=== PATIENT | female | born 1995 | race African-American/Black ===

== ENCOUNTER 2017-01-24 03:01 | Emergency (ER) | payer SELFPAY ==
[~2017-01-24] VITALS: Ht 160 cm; Wt 60.3 kg
--- NOTE | 2017-01-24 03:46 | ED.ADGEN ---
Past Medical History Past Medical History: No Pertinent History Past Surgical History: No Surgical History Alcohol Use: Occasionally Drug Use: Marijuana Adult General Chief Complaint Chief Complaint: NAUSEA/VOMITING/DIARRHA HPI HPI Patient is a 21 year old -[place] female with history of daily nausea vomiting usually at night presents with fall while episodes of emesis today. Patient states she has vomited 4 times. She also reports lower abdominal painand cramping worse with vomiting. No diarrhea or constipation.. She was concerned that she may have been . Last menstrual period was 10 days ago reports a "borderline" positive test earlier today. Patient denies chest pain, shortness of breath, flank pain, urinary frequency urgency. No prior abdominal surgeries. No other symptoms or complaints. Review of Systems Review of Systems Review symptoms as per history of present illness. All other review symptoms are negative. Current Medications Current Medications Current Medications Medications (Trade) Dose Ordered Sig/Rafi Start Time Stop Time Status Last Admin Dose Admin Famotidine (Pepcid) 20 mg STK-MED ONCE 01/24/17 03:47 01/24/17 03:48 DC Ondansetron HCl (Zofran Odt) 8 mg 1X ONCE 01/24/17 04:00 01/24/17 04:01 DC 01/24/17 03:50 8 MG Allergies Allergies Allergies Coded Allergies Type Severity Reaction Last Updated Verified No Known Drug Allergies 06/06/15 No Physical Exam Physical Exam Constitutional: Well developed, well nourished, no acute distress, non-toxic appearance. [] HENT: Normocephalic, atraumatic, bilateral external ears normal, oropharynx moist, no oral exudates, nose normal. [] Eyes: PERRLA, EOMI, conjunctiva normal, no discharge. [] Neck: Normal range of motion, no tenderness, supple, no stridor. [] Cardiovascular:Heart rate regular rhythm, no murmur [] Lungs & Thorax: Bilateral breath sounds clear to auscultation [] Abdomen: Bowel sounds normal, soft, soft, nondistended, mild suprapubic pain, tenderness, negative McBurney's point, no rebound rigidity or guarding. Skin: Warm, dry, no erythema, no rash. [] Back: No tenderness, no CVA tenderness. [] Extremities: No tenderness, no cyanosis, no clubbing, ROM intact, no edema. [] Neurologic: Alert and oriented X 3, normal motor function, normal sensory function, no focal deficits noted. [] Psychologic: Affect normal, judgement normal, mood normal. [] Current Patient Data Vital Signs Vital Signs Date Time Temp Pulse Resp B/P (MAP) Pulse Ox O2 Delivery O2 Flow Rate FiO2 01/24/17 04:30 52 19 98/67 (77) 98 Room Air 01/24/17 03:11 98.3 98.3 Lab Values Laboratory Tests Test 01/24/17 02:25 POC Urine HCG, Qualitative Hcg negative (Negative) EKG EKG [] Radiology/Procedures Radiology/Procedures [] Course & Med Decision Making Course & Med Decision Making Pertinent Labs and Imaging studies reviewed. (See chart for details) [Patient with vomiting and concern of possible . Patient's abdomen soft , minimally tender and does not represent an acute surgical abdomen. Point-of- care test negative and the ED. Patient's nausea improved with treatment. Patient able to tolerate oral liquids prior to departure.] Dragon Disclaimer Dragon Disclaimer This electronic medical record was generated, in whole or in part, using a voice recognition dictation system. EDGAR MACHADO DO Jan 24, 2017 03:46
[2017-01-24] MEDS ORDERED: FAMOTIDINE 20 MG TABLET. ONE (03:47)
[2017-01-24] MEDS ORDERED: ONDANSETRON ODT 4 MG TAB.RAPDIS. PO ONE (04:00)
[2017-01-24] MEDS ORDERED: FAMOTIDINE 20 MG TABLET. PO ONE (04:00)
[2017-01-24 04:30] VITALS: BP 98/67
== END 2017-01-24 04:49 | disposition home or self-care (01) ==
LOC: ER 03:01
DX: R11.2 Nausea with vomiting, unspecified (principal); R10.30 Lower abdominal pain, unspecified
CPT/HCPCS: 81025; 99283; Q0162

== ENCOUNTER 2017-05-25 11:47 | Emergency (ER) | payer SELFPAY ==
[~2017-05-25] VITALS: Ht 160 cm; Wt 61.2 kg
[2017-05-25 12:00] VITALS: BP 122/76
[2017-05-25] MEDS ORDERED: HYDROcodone/APAP 5/325MG 1 TAB TABLET PO ONE (12:45)
[2017-05-25] MEDS ORDERED: DIPHTH,PERTUSS(ACELL),TET TOX 0.5 ML DISP.SYRIN. VAX IM ONE (12:45)
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
== END 2017-05-25 13:16 | disposition home or self-care (01) ==
LOC: ER 11:47
DX: S01.511A Laceration without foreign body of lip, initial encounter (principal); Y08.89XA Assault by other specified means, initial encounter; Y93.89 Activity, other specified; Y92.89 Other specified places as the place of occurrence of the external cause; Y99.8 Other external cause status
CPT/HCPCS: 90471; 90715; 99283-25

== ENCOUNTER 2018-04-15 20:08 | Emergency (ER) | payer SELFPAY ==
[~2018-04-15] VITALS: Ht 160 cm; Wt 64.9 kg
[2018-04-15 20:21] VITALS: BP 122/57
[2018-04-15] MEDS ORDERED: METH4TAB2 PO (20:41)
--- NOTE | 2018-04-15 20:42 | PHYS DOC ---
Past Medical History Past Medical History: No Pertinent History Past Surgical History: No Surgical History Additional Information: 0.5 ppd Alcohol Use: None Drug Use: None Adult General Chief Complaint Chief Complaint: SKIN RASH/ABSCESS [facility] HPI Patient is a 23 year old female who presents with a widespread very itchy rash. She states that she does not know what is causing the rash. It started fairly suddenly approximately one day ago. She has not tried [id number] medications for treatment. Review of Systems Review of Systems Constitutional: Denies fever or chills [] Respiratory: Denies cough or shortness of breath [] Cardiovascular: No additional information not addressed in HPI [] GI: Denies abdominal pain, nausea, vomiting, bloody stools or diarrhea [] : Denies dysuria or hematuria [] Musculoskeletal: Denies back pain or joint pain [] Integument: See history of present illness Neurologic: Denies headache, focal weakness or sensory changes [] Endocrine: Denies polyuria or polydipsia [] All other systems were reviewed and found to be within normal limits, except as documented in this note. Allergies Allergies Allergies Coded Allergies Type Severity Reaction Last Updated Verified No Known Drug Allergies 06/06/15 No Physical Exam Physical Exam Constitutional: Well developed, well nourished, no acute distress, non-toxic appearance. [] Cardiovascular:Heart rate regular rhythm, no murmur [] Lungs & Thorax: Bilateral breath sounds clear to auscultation [] Abdomen: Bowel sounds normal, soft, no tenderness, no masses, no pulsatile masses. [] Skin: The patient has numerous small papules scattered across her bilateral upper extremities just and torso with some evidence of excoriation but no signs of infection Neurologic: Alert and oriented X 3, normal motor function, normal sensory function, no focal deficits noted. [] Psychologic: Affect normal, judgement normal, mood normal. [] Current Patient Data Vital Signs Vital Signs Date Time Temp Pulse Resp B/P (MAP) Pulse Ox O2 Delivery O2 Flow Rate FiO2 04/15/18 20:21 98.3 83 16 122/57 (78) 98 Room Air 98.3 EKG EKG [] Radiology/Procedures Radiology/Procedures [] Course & Med Decision Making Course & Med Decision Making Pertinent Labs and Imaging studies reviewed. (See chart for details) [] Dragon Disclaimer Dragon Disclaimer This electronic medical record was generated, in whole or in part, using a voice recognition dictation system. Departure Departure Impression: Primary Impression: Rash and nonspecific skin eruption Disposition: HOME, SELF-CARE Condition: STABLE Referrals: NO PCP (PCP) Patient Instructions: Contact Dermatitis Additional Instructions: Take the medication with food. Take Benadryl along with this medication schedule to help control your itching. Follow-up with your primary care provider in 3 days for recheck if not improving or return to the emergency department if worsening. Scripts Methylprednisolone (MEDROL) 4 Mg Tab.ds.pk 1 PKG PO UD, #1 PKG Prov: EDIN DOZIER APRN 04/15/18 EDIN DOZIER APRN Apr 15, 2018 20:42
== END 2018-04-15 20:47 | disposition home or self-care (01) ==
LOC: ER 20:08
DX: R21 Rash and other nonspecific skin eruption (principal); F42.4 Excoriation (skin-picking) disorder
CPT/HCPCS: 99283

== ENCOUNTER 2018-04-28 12:41 | Emergency (ER) | payer SELFPAY ==
[~2018-04-28] VITALS: Ht 160 cm; Wt 63.5 kg
[~2018-04-28 12:41] MED LIST: METH4TAB2 PO
[2018-04-28 13:32] VITALS: BP 123/57
[2018-04-28] MEDS ORDERED: HYDR25TA PO (13:44)
[2018-04-28] MEDS ORDERED: PRED-220 PO (13:44)
[2018-04-28] MEDS ORDERED: FAMO20TA5 PO (13:44)
[2018-04-28] MEDS ORDERED: NYST15CR2 TP (13:44)
--- NOTE | 2018-04-28 13:44 | PHYS DOC ---
Past Medical History Past Medical History: No Pertinent History Past Surgical History: No Surgical History Alcohol Use: None Drug Use: None Adult General Chief Complaint Chief Complaint: ITCHING HPI HPI Patient is a 23 year old female with no significant medical history who presents today complaining of a pruritic rash that began a month ago. Patient states she has tried [id number] remedies with no relief. She states she was seen in the ED 17 days ago for the same rash, she states she was given Medrol Dosepak, she states there is no improvement. Patient denies any new contacts. She is very tearful wishing her skin would be back to normal. Review of Systems Review of Systems Constitutional: Denies fever or chills [] Musculoskeletal: Denies back pain or joint pain [] Integument: Reports rash. Neurologic: Denies headache, focal weakness or sensory changes [] All other systems were reviewed and found to be within normal limits, except as documented in this note. Allergies Allergies Allergies Coded Allergies Type Severity Reaction Last Updated Verified No Known Drug Allergies 06/06/15 No Physical Exam Physical Exam Constitutional: Well developed, well nourished, no acute distress, non-toxic appearance. [] Skin: Mild to moderate amount of semicircular raised rashes, some of them have darkening centers, on the chest, bilateral upper extremities, lower extremities , trace amount of similar rash on the face. Back: No tenderness, no CVA tenderness. [] Extremities: No tenderness, no cyanosis, no clubbing, ROM intact, no edema. [] Neurologic: Alert and oriented X 3, normal motor function, normal sensory function, no focal deficits noted. [] Psychologic: Affect normal, judgement normal, mood normal. [] Current Patient Data Vital Signs Vital Signs Date Time Temp Pulse Resp B/P (MAP) Pulse Ox O2 Delivery O2 Flow Rate FiO2 04/28/18 13:32 98.3 69 16 123/57 (79) 100 Room Air 98.3 EKG EKG [] Radiology/Procedures Radiology/Procedures [] Course & Med Decision Making Course & Med Decision Making Pertinent Labs and Imaging studies reviewed. (See chart for details) This is a 23-year-old female patient presenting to the ED today with contact dermatitis rash spread throughout the body, etc. to tell if this rash is fungal or not. Patient has been tried on Medrol Dosepak couple days ago with no relief. She was given Decadron injection in the ED as well as hydroxyzine and famotidine. She'll be discharged with triamcinolone/nystatin cream, higher dose of tapered prednisone, and hydroxyzine. She was instructed to follow-up with a template cutter which we provided. Cynthia Disclaimer Dragon Disclaimer This electronic medical record was generated, in whole or in part, using a voice recognition dictation system. Departure Departure Impression: Primary Impression: Contact dermatitis Disposition: 01 HOME, SELF-CARE Condition: STABLE Referrals: NO PCP (PCP) MANDA DAVENPORT MD follow up in one week Patient Instructions: Contact Dermatitis, [id number] Additional Instructions: You were evaluated in the emergency room for a rash. We put you on medications, use them as prescribed. we provided you a template cutter, contact the office and follow up with them as soon as possible Scripts Nystatin/Triamcin (NYSTATIN-TRIAMCINOLONE CREAM) 15 Gm Cream..g. 1 RAUL TP BID, #60 GM 1 Refill Prov: MAGGI GUZMAN APRN 04/28/18 Hydroxyzine Hcl (HYDROXYZINE HCL) 25 Mg Tablet 1 TAB PO TID PRN for RASH, #60 TAB Prov: MAGGI GUZMAN APRN 04/28/18 Famotidine (FAMOTIDINE) 20 Mg Tablet 20 MG PO DAILY, #20 TAB Prov: MAGGI GUZMAN APRN 04/28/18 Prednisone (PREDNISONE ) 10 Mg Tablet 10 MG PO UD for PREDNISONE TAPER, #39 TAB 0 Refills Take 3 tablets by mouth twice a day for 3 days, then take 2 tablets by mouth twice a day for 3 days, then take 1 tablet by mouth twice a day for 3 days, then take 1 tablet by mouth daily x 3 days, then stop. Prov: MAGGI GUZMAN APRN 04/28/18 Problem Qualifiers Primary Impression: Contact dermatitis Contact dermatitis type: unspecified Contact dermatitis trigger: unspecified trigger Qualified Codes: L25.9 - Unspecified contact dermatitis, unspecified cause MAGGI GUZMAN APRN Apr 28, 2018 13:44
[2018-04-28] MEDS: FAMOTIDINE 20 MG TABLET. PO ONE (13:50)
[2018-04-28] MEDS: DEXAMETHASONE SOD PHOS 20 MG/5 ML VIAL. IM ONE (13:50)
[2018-04-28] MEDS: hydrOXYzine IM 50 MG/ML VIAL IM ONE (13:50)
== END 2018-04-28 14:10 | disposition home or self-care (01) ==
LOC: ER 12:41
DX: L25.9 Unspecified contact dermatitis, unspecified cause (principal)
CPT/HCPCS: 96372; 99284; J1100; J3410; 99285-25

== ENCOUNTER 2020-01-01 07:56 | Emergency (ER) | payer OTHER ==
[~2020-01-01] VITALS: Ht 160 cm; Wt 65.0 kg
[~2020-01-01 07:56] MED LIST changes: +FAMO20TA5 PO; +HYDR25TA PO; +NYST15CR2 TP; +PRED-220 PO
[2020-01-01 08:47] LABS: BILIRUBIN,URINE NEGATIVE (NEG); CLARITY,URINE CLEAR; COLOR,URINE YELLOW; NITRITE,URINE NEGATIVE (NEG); PROTEIN,URINE NEGATIVE (NEG-TRACE); UROBILINOGEN,URINE 0.2 mg/dL (0.2 mg/dL)
[2020-01-01 08:48] LABS: BACTERIA,URINE MANY /HPF (0-FEW); RBC,URINE 0 /HPF (0-2); SQUAMOUS EPITHELIAL CELL,UR MANY /LPF
[2020-01-01] MEDS ORDERED: diphenhydrAMINE HCL 25 MG CAPSULE PO ONE (09:30)
[2020-01-01] MEDS ORDERED: ACETAMINOPHEN 500 MG TABLET PO ONE (09:30)
[2020-01-01] MEDS ORDERED: METOCLOPRAMIDE HCL 10 MG/2 ML VIAL. IVP ONE (09:30)
[2020-01-01] MEDS ORDERED: IV NORMAL SALINE 1000ML BAG 1,000 ML IV ONE (09:30)
--- NOTE | 2020-01-01 11:19 | PHYS DOC ---
Past Medical History Past Medical History: No Pertinent History Additional Past Medical Histor: migraine ROMERO Past Surgical History: No Surgical History Smoking Status: Never Smoker Alcohol Use: None Drug Use: None General Adult EDM: Chief Complaint: HEADACHE HPI: HPI: Patient is a 24 year old female at around 12 weeks gestation who presents with migraine. Patient states that at 6 AM this morning she developed a severe global headache with photophobia. She has nausea and vomiting, noise and movement sensitivity. She states this feels exactly like previous migraines. She has not had an ultrasound since this started. She denies any vaginal discharge or bleeding. She has had some abdominal cramping. Review of Systems: Review of Systems: General: Denies fever, chills, sweats, fatigue Eyes: Denies drainage, blurred vision, eye redness HENT: Denies rhinorrhea, sore throat, earache Respiratory: Denies cough, shortness of breath, wheezing Cardiac: Denies edema, palpitations, chest pain GI: Denies abdominal pain. Reports nausea, vomiting MSK: Denies back pain, neck pain Skin: Denies rash, jaundice Neuro: Reports headache, photophobia, lightheadedness Psychiatric: Denies SI/HI Heart Score: Risk Factors: Risk Factors: DM, Current or recent (<one month) smoker, HTN, HLP, family history of CAD, obesity. Risk Scores: Score 0 - 3: 2.5% MACE over next 6 weeks - Discharge Home Score 4 - 6: 20.3% MACE over next 6 weeks - Admit for Clinical Observation Score 7 - 10: 72.7% MACE over next 6 weeks - Early Invasive Strategies Current Medications: Current Medications Medications (Trade) Dose Ordered Sig/Rafi Start Time Stop Time Status Last Admin Dose Admin Acetaminophen (Tylenol) 1,000 mg 1X ONCE 01/01/20 09:30 01/01/20 09:31 DC 01/01/20 09:55 1,000 MG Diphenhydramine HCl (Benadryl) 25 mg 1X ONCE 01/01/20 09:30 01/01/20 09:31 DC 01/01/20 09:30 25 MG Metoclopramide HCl (Reglan Vial) 10 mg 1X ONCE 01/01/20 09:30 01/01/20 09:31 DC 01/01/20 09:56 10 MG Sodium Chloride 1,000 ml @ 30 mls/hr 1X ONCE 01/01/20 09:30 01/02/20 18:49 01/01/20 09:30 30 MLS/HR Allergies: Allergies: Allergies Coded Allergies Type Severity Reaction Last Updated Verified No Known Drug Allergies 06/06/15 No Physical Exam: PE: General: Awake, alert, tearful. Well Nourished, well hydrated. Cooperative HEENT: Atraumatic, EOMI, PERRL, airway patent, moist oral mucosa Neck: Supple, trachea midline Respiratory: CTA bilaterally, normal effort, no wheezing/crackles CV: RRR, no murmur, cap refill <2 GI: Soft, nondistended, nontender, no masses MSK: No obvious deformities Skin: Warm, dry, intact Neuro: A&O x3, speech NL, sensory and motor grossly intact, no focal deficits Psych: Normal affect, normal mood, not suicidal or homicidal Current Patient Data: Labs: Laboratory Tests Test 01/01/20 08:20 01/01/20 08:31 Urine Collection Type Unknown Urine Color Yellow Urine Clarity Clear Urine pH 7.0 (<5.0-8.0) Urine Specific Decker 1.025 (1.000-1.030) Urine Protein Negative mg/dL (NEG-TRACE) Urine Glucose (UA) Negative mg/dL (NEG) Urine Ketones (Stick) Negative mg/dL (NEG) Urine Blood Negative (NEG) Urine Nitrite Negative (NEG) Urine Bilirubin Negative (NEG) Urine Urobilinogen Dipstick 0.2 mg/dL (0.2 mg/dL) Urine Leukocyte Esterase Trace (NEG) Urine RBC 0 /HPF (0-2) Urine WBC 1-4 /HPF (0-4) Urine Squamous Epithelial Cells Many /LPF Urine Bacteria Many /HPF (0-FEW) Urine Mucus Marked /LPF POC Urine HCG, Qualitative Hcg positive (Negative) Vital Signs: Vital Signs Date Time Temp Pulse Resp B/P (MAP) Pulse Ox O2 Delivery O2 Flow Rate FiO2 01/01/20 08:15 97.6 78 20 120/72 (88) 99 Room Air 97.6 EKG: EKG: [] Radiology/Procedures: Radiology/Procedures: [] Course & Med Decision Making: Course & Med Decision Making Pertinent Labs and Imaging studies reviewed. (See chart for details) Patient is a 24-year-old female who presents to the emergency room who presents to the emergency room complaining of a migraine. Patient has a history of migraines and at her headache today is typical of her normal migraines. Patient did not have sudden onset of severe headache that would be concerning for subarachnoid hemorrhage. She does not have any neurologic deficits on exam. She does not have any fever, neck stiffness, confusion, altered mental status that would be suggestive of meningitis or encephalopathy. Patient will be given a migraine cocktail that is appropriate and safe in . Ultrasound was also ordered of the fetus given that she is having abdominal cramping. On reevaluation, patient is feeling much better and would like to go home. US is normal. Patient's test results and vitals while in the ED were fully reviewed and discussed with the patient. Patient is stable and at this time does not need admission to the hospital. We have discussed strict return precautions and the importance of following up with their Primary Care Physician. Patient stated understanding and was given an opportunity to ask any questions. Patient is in agreement with plan. Cynthia Disclaimer: Cynthia Disclaimer: This electronic medical record was generated, in whole or in part, using a voice recognition dictation system. Departure Departure Impression: Primary Impression: Migraine Additional Impression: Abdominal pain during Disposition: HOME, SELF-CARE Condition: GOOD Referrals: NO PCP (PCP) Patient Instructions: ABCs of , Migraine Headache Justicifation of Admission Dx: Justifications for Admission: Justification of Admission Dx: No BEBETO CRUZ MD Jan 01, 2020 11:19
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
[2020-01-01 12:45] VITALS: BP 129/78
== END 2020-01-01 13:04 | disposition home or self-care (01) ==
LOC: ER 07:56
DX: O26.891 Other specified pregnancy related conditions, first trimester (principal); G43.909 Migraine, unspecified, not intractable, without status migrainosus; R11.2 Nausea with vomiting, unspecified; R10.9 Unspecified abdominal pain
CPT/HCPCS: 76801; 81001; 81025; 96374; 99285; J2765; J7030; Q0163

== ENCOUNTER 2021-06-12 13:27 | Emergency (ER) | payer OTHER ==
[~2021-06-12] VITALS: Ht 160 cm; Wt 63.6 kg
[2021-06-12 13:38] VITALS: BP 104/77
[2021-06-12] MEDS ORDERED: HYDROcodone/APAP 5/325MG 1 TAB TABLET PO ONE (14:00)
[2021-06-12 14:17] LABS: BILIRUBIN,URINE NEGATIVE (NEG); CLARITY,URINE CLEAR; COLOR,URINE YELLOW; NITRITE,URINE NEGATIVE (NEG); PROTEIN,URINE 30 mg/dL (NEG-TRACE); UROBILINOGEN,URINE 0.2 mg/dL (0.2 mg/dL)
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
[2021-06-12 14:47] LABS: BACTERIA,URINE MODERATE /HPF (0-FEW)
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
== END 2021-06-12 14:33 | disposition left against medical advice (07) ==
LOC: ER 14:08
DX: S01.511A Laceration without foreign body of lip, initial encounter (principal); F17.200 Nicotine dependence, unspecified, uncomplicated; G43.909 Migraine, unspecified, not intractable, without status migrainosus; Y04.0XXA Assault by unarmed brawl or fight, initial encounter; Y93.89 Activity, other specified; Y92.89 Other specified places as the place of occurrence of the external cause; Y99.8 Other external cause status
CPT/HCPCS: 73060; 81001; 81025; 87086; 99284-25